=== PATIENT | female | born 1975 | race African-American/Black ===

== ENCOUNTER 2025-05-14 12:58 | Emergency (ER) | payer MEDICAID ==
[~2025-05-14] VITALS: Ht 157.5 cm; Wt 66.0 kg
[~2025-05-14 12:58] MED LIST: NO MEDICATIONS REPORTED
[2025-05-14 13:04] VITALS: O2SAT 99
[2025-05-14 13:59] LABS: BASOPHILS % 0.8 % (0.0-2.0); EOSINOPHILS % 2.1 % (0.0-5.0); HEMATOCRIT. 43.7 % (36.0-48.0); HEMOGLOBIN. 14.8 g/dL (12.0-16.0); LYMPHOCYTES % 34.0 % (20.0-50.0); MEAN PLATELET VOLUME 8.6 fl (7.4-10.4); MONOCYTES % 7.6 % (2.0-8.0); NEUTROPHILS % 55.5 % (40.0-76.0); PLATELET 329 x1000/uL (130-400); RED BLOOD CELL COUNT 4.56 mill/uL (4.2-5.4); RED CELL DISTRIBUTION WIDTH 14.4 % (11.6-14.6)
[2025-05-14 14:10] LABS: CREATININE 1.1 mg/dL (0.6-1.0)
[2025-05-14 14:11] LABS: UREA NITROGEN BLOOD 11 mg/dL (9-23)
[2025-05-14 14:13] LABS: CLARITY URINE CLEAR (CLEAR); COLOR URINE YELLOW (YELLOW); GLUCOSE URINE NEGATIVE (NEGATIVE); KETONES URINE NEGATIVE (NEGATIVE); PH URINE 6.0 (4.5-8.0); PROTEIN URINE TRACE (NEGATIVE); SPECIFIC GRAVITY URINE 1.013 (1.005-1.030)
[2025-05-14 14:14] LABS: LEUKOCYTE ESTERASE URINE 2+ (NEGATIVE); NITRITE URINE NEGATIVE (NEGATIVE); OCCULT BLOOD URINE TRACE (NEGATIVE); UCG KIT LOT# 0000946166; UROBILINOGEN URINE 0.2 E.U./dL (0.2-1.0)
[2025-05-14 14:17] LABS: UCG SCREEN NEGATIVE
[2025-05-14 14:39] LABS: BACTERIA URINE 1+; SQUAMOUS EPITHELIAL CELL URINE 1+ /lpf (RARE/1+); WBC URINE 25-50 /hpf (0-2)
[2025-05-14] MEDS ORDERED: CIPR-452 MT (15:33)
[2025-05-14] MEDS ORDERED: IBUP-2029 MT (15:34)
[2025-05-14] MEDS ORDERED: PYR200 MT (15:34)
[2025-05-14] MEDS: KETOROLAC 30MG/ML VIAL IM SCH (15:41)
[2025-05-14 15:44] VITALS: BP 148/90; PULSE 89; RESP 16; TEMP 36.7; O2SAT 99
== END 2025-05-14 16:20 | disposition home or self-care (01) ==
LOC: ER 12:58
DX: N12 Tubulo-interstitial nephritis, not specified as acute or chronic (principal); Z55.6 Problems related to health literacy; Z79.899 Other long term (current) drug therapy
CPT/HCPCS: 99283; 80048; 81003; 81025; 85025; 87086; 87186; 87077; 36415; 96372; J1885